=== PATIENT | male | born 2000 | race Caucasian/White ===

== ENCOUNTER 2021-11-11 02:27 | Inpatient (IN) | payer MEDICAID ==
[~2021-11-11] VITALS: Ht 157.5 cm; Wt 39.5 kg
[2021-11-11 04:27] LABS: Basophils # (auto) 0 10 ^3/uL (0-0.2); Eosinophils # (auto) 0 10 ^3/uL (0-0.8); Lymphocytes # (auto) 1.9 10 ^3/uL (0.4-5.4); Monocytes # (auto) 0.3 10 ^3/uL (0-1.3); Neutrophils # (auto) 2.5 10 ^3/uL (1.6-8.6); White Blood Cell 4.7 10^3/uL (4.4-10.8)
[2021-11-11 04:31] LABS: Basophils % (auto) 0.2 % (0.0-2.0); Hematocrit 29.2 % (41.0-53.0); Lymphocytes % (auto) 39.6 % (10.0-50.0); Mean Corpuscular Hemoglobin 42.6 pg (28.0-32.0); Mean Corpuscular Hgb Conc. 34.2 g/dL (32.0-36.0); Mean Corpuscular Volume 124.8 fL (80.0-100.0); Neutrophils % (auto) 53.2 % (37.0-80.0); Nucleated Red Blood Cells % 0.2 %; Red Blood Cells 2.34 10^6/uL (4.5-5.90)
[2021-11-11 04:40] LABS: Albumin 1.2 g/dL (3.4-5.0); Calcium 6.6 mg/dL (8.5-10.1); Magnesium 2.1 mg/dL (1.6-2.6); Potassium 4.1 mmol/L (3.5-5.1)
[2021-11-11 04:44] LABS: Bilirubin, Total 0.3 mg/dL (0.2-1.0); Total Protein 4.1 g/dL (6.4-8.2)
[2021-11-11 05:32] LABS: Urine Bacteria NONE SEEN /hpf (None Seen); Urine Blood Negative /uL (Negative); Urine Specific Gravity 1.008 (1.001-1.035); Urine WBC <1 /hpf (0 - 3)
[2021-11-11 08:23] LABS: Cholesterol 70 mg/dL (< 200)
[2021-11-11 08:26] LABS: HDL Cholesterol 36 mg/dL (40-59); LDL Cholesterol 29 mg/dL (< 100); Triglycerides 94 mg/dL (< 150)
[2021-11-11] MEDS ORDERED: MORPHINE SULFATE INJ 2 MG/ml SYRG IV PRN ×2 (10:30)
[2021-11-11] MEDS ORDERED: ACETAMINOPHEN 325 MG TAB PO PRN (10:30)
[2021-11-11] MEDS ORDERED: HYDROcodone-ACET 5/325MG TAB PO PRN (10:30)
[2021-11-11] MEDS ORDERED: NITROGLYCERIN 0.4 MG SL TAB SL PRN (10:30)
[2021-11-11] MEDS ORDERED: ONDANSETRON HCL 4 MG/2 ML VIAL IV PRN (10:30)
[2021-11-11] MEDS: ENOXAPARIN SOD 60 MG/0.6 ML SYRINGE SC SCH ×2 (13:05→21:55)
[2021-11-11] MEDS: ALBUTEROL SULF 2.5 MG/0.5ML(0.5%) NEB SOLN NEB SCH ×3 (13:06→21:51)
[2021-11-11 13:27] VITALS: BP 96/73
[2021-11-11 14:37] LABS: Protein, Urine 9.1 mg/dL (0.0-11.9)
[2021-11-11 17:03] VITALS: BP 111/77
[2021-11-11] MEDS ORDERED: PRED20TA2 PO (19:06)
[2021-11-11] MEDS ORDERED: ALBU108A5 IN (19:06)
[2021-11-11] MEDS ORDERED: BECL40AE11 IN (19:06)
[2021-11-11] MEDS ORDERED: CLIN-188 PO (19:06)
[2021-11-11 19:59] LABS: BUN/Creatinine Ratio 72.7; Calcium 7.1 mg/dL (8.5-10.1); Potassium 4.3 mmol/L (3.5-5.1)
[2021-11-11 22:00] VITALS: BP 108/89
[2021-11-12 04:52] VITALS: BP 122/93
[2021-11-12 06:04] LABS: Basophils # (auto) 0 10 ^3/uL (0-0.2); Basophils % (auto) 0.3 % (0.0-2.0); Eosinophils # (auto) 0 10 ^3/uL (0-0.8); Eosinophils % (auto) 0.7 % (0.0-7.0); Lymphocytes # (auto) 1.7 10 ^3/uL (0.4-5.4); Monocytes # (auto) 0.2 10 ^3/uL (0-1.3); Neutrophils # (auto) 2.3 10 ^3/uL (1.6-8.6); Red Blood Cells 2.27 10^6/uL (4.5-5.90); White Blood Cell 4.3 10^3/uL (4.4-10.8)
[2021-11-12 06:07] LABS: Hematocrit 28.7 % (41.0-53.0); Hemoglobin 9.7 g/dL (13.5-17.5); Lymphocytes % (auto) 40.3 % (10.0-50.0); Mean Corpuscular Hemoglobin 42.6 pg (28.0-32.0); Mean Corpuscular Hgb Conc. 33.7 g/dL (32.0-36.0); Mean Corpuscular Volume 126.4 fL (80.0-100.0); Monocytes % (auto) 4.4 % (0.0-12.0); Neutrophils % (auto) 54.3 % (37.0-80.0); Nucleated Red Blood Cells % 0.3 %
[2021-11-12] MEDS: ALBUTEROL SULF 2.5 MG/0.5ML(0.5%) NEB SOLN NEB SCH ×5 (06:45→22:35)
[2021-11-12] MEDS ORDERED: MORPHINE SULFATE INJ 2 MG/ml SYRG IV ONE (08:45)
[2021-11-12 09:00] VITALS: BP 101/69
[2021-11-12] MEDS: ENOXAPARIN SOD 60 MG/0.6 ML SYRINGE SC SCH ×2 (09:22→22:19)
[2021-11-12] MEDS ORDERED: ENOXAPARIN SOD 40 MG/0.4 ML SYRINGE SC SCH (10:00)
[2021-11-12] MEDS: FUROSEMIDE 20 MG/2 ML VIAL IV SCH (10:00)
[2021-11-12 10:54] LABS: Urine Bacteria NONE SEEN /hpf (None Seen); Urine Blood Negative /uL (Negative); Urine Specific Gravity 1.007 (1.001-1.035); Urine WBC <1 /hpf (0 - 3)
[2021-11-12 11:13] LABS: Protein, Urine 7.9 mg/dL (0.0-11.9)
[2021-11-12 13:00] VITALS: BP 91/67
[2021-11-12] MEDS: levoFLOXacin 500MG 100 ML IV SCH (14:43)
[2021-11-12 16:50] VITALS: BP 104/58
[2021-11-12 22:00] VITALS: BP 106/59
[2021-11-13 05:00] VITALS: BP 92/44
[2021-11-13] MEDS: ALBUTEROL SULF 2.5 MG/0.5ML(0.5%) NEB SOLN NEB SCH ×5 (07:06→22:52)
[2021-11-13 07:44] LABS: Hemoglobin 7.5 g/dL (13.5-17.5); White Blood Cell 2.9 10^3/uL (4.4-10.8)
[2021-11-13 07:48] LABS: Basophils # (auto) 0 10 ^3/uL (0-0.2); Basophils % (auto) 0.3 % (0.0-2.0); Eosinophils # (auto) 0 10 ^3/uL (0-0.8); Eosinophils % (auto) 0.9 % (0.0-7.0); Lymphocytes # (auto) 1.5 10 ^3/uL (0.4-5.4); Lymphocytes % (auto) 50.5 % (10.0-50.0); Mean Corpuscular Hemoglobin 42.1 pg (28.0-32.0); Mean Corpuscular Hgb Conc. 34.2 g/dL (32.0-36.0); Monocytes # (auto) 0.1 10 ^3/uL (0-1.3); Monocytes % (auto) 4.8 % (0.0-12.0); Neutrophils # (auto) 1.3 10 ^3/uL (1.6-8.6); Neutrophils % (auto) 43.5 % (37.0-80.0); Nucleated Red Blood Cells % 0.1 %; Red Blood Cells 1.78 10^6/uL (4.5-5.90)
[2021-11-13 07:51] LABS: Mean Corpuscular Volume 123.1 fL (80.0-100.0)
[2021-11-13 07:59] LABS: BUN/Creatinine Ratio 76.5; Calcium 6.8 mg/dL (8.5-10.1); Magnesium 1.9 mg/dL (1.6-2.6); Potassium 3.8 mmol/L (3.5-5.1)
[2021-11-13 09:00] VITALS: BP 105/60
[2021-11-13] MEDS: ENOXAPARIN SOD 60 MG/0.6 ML SYRINGE SC SCH ×2 (10:02→21:52)
[2021-11-13] MEDS: FUROSEMIDE 20 MG/2 ML VIAL IV SCH (10:02)
[2021-11-13] MEDS: levoFLOXacin 500MG 100 ML IV SCH (10:03)
[2021-11-13] MEDS: LACTULOSE 20Gm/30ML SOLN PO SCH ×2 (12:13→21:52)
[2021-11-13 12:41] VITALS: BP 96/67
[2021-11-13 16:47] VITALS: BP 106/70
[2021-11-13 20:39] LABS: Basophils # (auto) 0 10 ^3/uL (0-0.2); Eosinophils # (auto) 0 10 ^3/uL (0-0.8); Hemoglobin 8.3 g/dL (13.5-17.5); Monocytes # (auto) 0.1 10 ^3/uL (0-1.3); Neutrophils # (auto) 1.4 10 ^3/uL (1.6-8.6); Red Blood Cells 2.07 10^6/uL (4.5-5.90)
[2021-11-13 20:41] LABS: Basophils % (auto) 0.3 % (0.0-2.0); Eosinophils % (auto) 0.3 % (0.0-7.0); Hematocrit 25.4 % (41.0-53.0); Lymphocytes # (auto) 1.5 10 ^3/uL (0.4-5.4); Lymphocytes % (auto) 48.8 % (10.0-50.0); Mean Corpuscular Hemoglobin 39.9 pg (28.0-32.0); Mean Corpuscular Hgb Conc. 32.6 g/dL (32.0-36.0); Mean Corpuscular Volume 122.4 fL (80.0-100.0); Monocytes % (auto) 4.1 % (0.0-12.0); Neutrophils % (auto) 46.5 % (37.0-80.0); Nucleated Red Blood Cells % 0.3 %; Red Cell Distribution Width 18.8 % (11.8-14.3); White Blood Cell 3.1 10^3/uL (4.4-10.8)
[2021-11-13 22:00] VITALS: BP 95/67
[2021-11-14] VITALS (7 sets, daily range): BP systolic 90–104; BP diastolic 56–77
[2021-11-14] MEDS: ALBUTEROL SULF 2.5 MG/0.5ML(0.5%) NEB SOLN NEB SCH ×5 (05:37→21:40)
[2021-11-14] MEDS: LACTULOSE 20Gm/30ML SOLN PO SCH ×3 (06:00→21:53)
[2021-11-14 09:06] LABS: Hepatitis B Surface Antibody Negative (Negative)
[2021-11-14 09:11] LABS: INR 1.22 (0.9-1.15); Partial Thromboplastin Time 35.6 sec (23.6-33.0)
[2021-11-14] MEDS: ENOXAPARIN SOD 60 MG/0.6 ML SYRINGE SC SCH ×2 (10:00→21:53)
[2021-11-14] MEDS: FUROSEMIDE 20 MG/2 ML VIAL IV SCH (10:02)
[2021-11-14] MEDS: levoFLOXacin 500MG 100 ML IV SCH (10:02)
[2021-11-14] MEDS ORDERED: LIDOCAINE 1% (LOCAL ANESTH.) PF 5ml SDV ONE (12:05)
[2021-11-14] MEDS ORDERED: LIDOCAINE 2%HCL (LOCAL ANESTH.) INJ 10ml MDV ONE (12:07)
[2021-11-14] MEDS ORDERED: LIDOCAINE 2% (LOCAL ANESTH.) PF 5ml SDV IJ ONE (12:15)
[2021-11-14 12:57] LABS: Hepatitis B Core IgM Negative
[2021-11-14 13:02] LABS: Hepatitis C Antibody Reactive (Negative)
[2021-11-15 05:00] VITALS: BP 99/65
[2021-11-15] MEDS: LACTULOSE 20Gm/30ML SOLN PO SCH ×3 (06:03→22:00)
[2021-11-15] MEDS: ALBUTEROL SULF 2.5 MG/0.5ML(0.5%) NEB SOLN NEB SCH ×5 (06:26→21:24)
[2021-11-15 06:48] LABS: White Blood Cell 2.7 10^3/uL (4.4-10.8)
[2021-11-15 06:50] LABS: Hematocrit 22.1 % (41.0-53.0); Hemoglobin 7.2 g/dL (13.5-17.5); Mean Corpuscular Hemoglobin 40.5 pg (28.0-32.0); Mean Corpuscular Hgb Conc. 32.4 g/dL (32.0-36.0); Mean Corpuscular Volume 125.2 fL (80.0-100.0); Red Blood Cells 1.77 10^6/uL (4.5-5.90); Red Cell Distribution Width 18.3 % (11.8-14.3)
[2021-11-15 06:59] LABS: Chloride 110 mmol/L (98-107); Potassium 3.8 mmol/L (3.5-5.1); Sodium 138 mmol/L (136-145)
[2021-11-15 07:00] LABS: Band Neutrophils % (manual) 0; Basophils % (manual) 0 (0.0-2.0); Blast Cells 0; Eosinophils % (manual) 0 (0-7); Metamyelocytes % 0; Myelocytes % 0; Promyelocytes % 0; Reactive Lymphocytes 0
[2021-11-15 07:05] LABS: Anion Gap 4 (5-15); Blood Urea Nitrogen 10 mg/dL (7-18); Calcium 6.6 mg/dL (8.5-10.1); Carbon Dioxide 24 mmol/L (21-32); Glucose 78 mg/dL (74-106); Magnesium 2.2 mg/dL (1.6-2.6); Phosphorus 2.5 mg/dL (2.5-4.90)
[2021-11-15 07:14] LABS: BUN/Creatinine Ratio 66.7; GFR African American 1094 mL/min; GFR Non-African American 904 mL/min
[2021-11-15 07:15] LABS: Albumin 0.8 g/dL (3.4-5.0)
[2021-11-15 08:10] LABS: Lymphocytes % (manual) 56 (10.0-50.0); Monocytes % (manual) 4 (0-12)
[2021-11-15 09:00] VITALS: BP 99/69
[2021-11-15] MEDS: FUROSEMIDE 20 MG/2 ML VIAL IV SCH (09:40)
[2021-11-15] MEDS: ENOXAPARIN SOD 40 MG/0.4 ML SYRINGE SC SCH ×2 (09:41→20:59)
[2021-11-15] MEDS ORDERED: ALBUMIN 25% 100 ML IV SCH ×2 (10:45→19:00)
[2021-11-15] MEDS: levoFLOXacin 500MG 100 ML IV SCH (10:56)
[2021-11-15] MEDS: ALBUMIN 25% 100 ML IV ONE ×2 (10:58→11:46)
[2021-11-15 13:00] VITALS: BP 97/69
[2021-11-15 17:04] VITALS: BP 96/58
[2021-11-15] MEDS: ALBUMIN 25% 100 ML IV SCH (19:40)
[2021-11-15 21:55] VITALS: BP 94/65
[2021-11-16] VITALS (10 sets, daily range): BP systolic 87–119; BP diastolic 57–66
[2021-11-16] MEDS: ALBUMIN 25% 100 ML IV SCH ×2 (04:37→11:31)
[2021-11-16] MEDS: LACTULOSE 20Gm/30ML SOLN PO SCH ×2 (06:00→14:00)
[2021-11-16] MEDS: ALBUTEROL SULF 2.5 MG/0.5ML(0.5%) NEB SOLN NEB SCH ×3 (09:51→18:39)
[2021-11-16 10:41] LABS: Mean Corpuscular Hgb Conc. 33.6 g/dL (32.0-36.0)
[2021-11-16 10:43] LABS: Hematocrit 18.8 % (41.0-53.0); Mean Corpuscular Hemoglobin 41.3 pg (28.0-32.0); Mean Corpuscular Volume 123.1 fL (80.0-100.0); Red Blood Cells 1.53 10^6/uL (4.5-5.90); Red Cell Distribution Width 18.6 % (11.8-14.3)
[2021-11-16] MEDS: FUROSEMIDE 20 MG/2 ML VIAL IV SCH (10:51)
[2021-11-16] MEDS: levoFLOXacin 500MG 100 ML IV SCH (10:52)
[2021-11-16] MEDS: ENOXAPARIN SOD 40 MG/0.4 ML SYRINGE SC SCH (10:55)
[2021-11-16 10:57] LABS: Hemoglobin 6.3 g/dL (13.5-17.5); White Blood Cell 1.9 10^3/uL (4.4-10.8)
[2021-11-16 10:59] LABS: Anion Gap 5 (5-15); BUN/Creatinine Ratio 53.3; Basophils % (manual) 0 (0.0-2.0); Blast Cells 0; Blood Urea Nitrogen 8 mg/dL (7-18); Calcium 7.5 mg/dL (8.5-10.1); Carbon Dioxide 25 mmol/L (21-32); Chloride 112 mmol/L (98-107); GFR African American 1094 mL/min; GFR Non-African American 904 mL/min; Glucose 87 mg/dL (74-106); Metamyelocytes % 0; Myelocytes % 0; Potassium 3.1 mmol/L (3.5-5.1); Promyelocytes % 0; Reactive Lymphocytes 0; Sodium 142 mmol/L (136-145)
[2021-11-16] MEDS ORDERED: APIX5TAB PO (11:40)
[2021-11-16] MEDS ORDERED: CEPH-509 PO (11:40)
[2021-11-16] MEDS ORDERED: POTASSIUM EFFERVESENT TAB 25 MEQ GT ONE (12:45)
[2021-11-16 14:12] LABS: Band Neutrophils % (manual) 1; Eosinophils % (manual) 2 (0-7); Lymphocytes % (manual) 63 (10.0-50.0); Monocytes % (manual) 4 (0-12)
== END 2021-11-16 21:35 | disposition home or self-care (01) | DRG 197 ==
LOC: ER 02:27 → TELE 10:33 → TELE-CENTR 16:38
PROVIDERS: ADMIT Internal Medicine; ATTEND Internal Medicine
PROC: 0W9B3ZZ Drainage of Left Pleural Cavity, Percutaneous Approach (ICD-10-PCS; principal; 2021-11-14)
PROC: 0W9G3ZZ Drainage of Peritoneal Cavity, Percutaneous Approach (ICD-10-PCS; 2021-11-15)
PROC: 30233N1 Transfusion of Nonautologous Red Blood Cells into Peripheral Vein, Percutaneous Approach (ICD-10-PCS; 2021-11-16)
DX: I82.432 Acute embolism and thrombosis of left popliteal vein (principal); J96.01 Acute respiratory failure with hypoxia; E43 Unspecified severe protein-calorie malnutrition; J91.8 Pleural effusion in other conditions classified elsewhere; R18.8 Other ascites; I42.9 Cardiomyopathy, unspecified; E88.09 Other disorders of plasma-protein metabolism, not elsewhere classified; E87.1 Hypo-osmolality and hyponatremia; I50.9 Heart failure, unspecified; B96.89 Other specified bacterial agents as the cause of diseases classified elsewhere; D64.9 Anemia, unspecified; Z20.822 Contact with and (suspected) exposure to COVID-19; F84.0 Autistic disorder; J45.909 Unspecified asthma, uncomplicated; J98.11 Atelectasis; Z79.01 Long term (current) use of anticoagulants; Z68.1 Body mass index [BMI] 19.9 or less, adult
CPT/HCPCS: 36415; 71045; 71250; 76705; 76775; 76942; 80048; 80053; 80061; 80069; 81001; 82570; 83605; 83735; 83880; 83935; 83986; 84133; 84156; 84300; 85007; 85025; 85027; 85379; 85610; 85652; 85730; 86038; 86160; 86704; 86705; 86706; 86803; 86850; 86900; 86901; 86920; 87040; 87077; 87186; 87205; 87340; 89051; 93306; 93970; 94640; G0378; J1956; J2001; P9047

== ENCOUNTER 2022-11-03 06:00 | Inpatient (IN) | payer MEDICAID, OTHER ==
[~2022-11-03] VITALS: Ht 152.4 cm; Wt 28.7 kg
[~2022-11-03 06:00] MED LIST: ALBU108A5 IN; APIX5TAB PO; BECL40AE11 IN; CEPH-509 PO
[2022-11-03 07:32] LABS: Basophils # (auto) 0.1 10 ^3/uL (0-0.2); Basophils % (auto) 1.2 % (0.0-2.0); Eosinophils # (auto) 0.3 10 ^3/uL (0-0.8); Eosinophils % (auto) 5.7 % (0.0-7.0); Hematocrit 37.7 % (41.0-53.0); Hemoglobin 12.3 g/dL (13.5-17.5); Lymphocytes # (auto) 2.2 10 ^3/uL (0.4-5.4); Mean Corpuscular Hemoglobin 29.1 pg (28.0-32.0); Mean Corpuscular Hgb Conc. 32.8 g/dL (32.0-36.0); Mean Corpuscular Volume 88.8 fL (80.0-100.0); Monocytes # (auto) 0.3 10 ^3/uL (0-1.3); Neutrophils # (auto) 2.9 10 ^3/uL (1.6-8.6); Neutrophils % (auto) 50.1 % (37.0-80.0); Red Blood Cells 4.24 10^6/uL (4.5-5.90); Red Cell Distribution Width 15.7 % (11.8-14.3); White Blood Cell 5.9 10^3/uL (4.4-10.8)
[2022-11-03 07:36] LABS: Albumin 2.4 g/dL (3.4-5.0); Calcium 8.1 mg/dL (8.5-10.1); Potassium 4.3 mmol/L (3.5-5.1)
[2022-11-03 07:40] LABS: INR 1.02 (0.9-1.15); Partial Thromboplastin Time 28.7 sec (24.6-33.4)
[2022-11-03 07:41] LABS: BUN/Creatinine Ratio 16.3 (10.0-20.0); Bilirubin, Total 0.2 mg/dL (0.2-1.0); Total Protein 5.6 g/dL (6.4-8.2)
[2022-11-03 09:21] LABS: Urine WBC None Seen /hpf (0 - 3)
[2022-11-03 09:49] LABS: Urine Bacteria NONE SEEN /hpf (None Seen); Urine Blood Negative /uL (Negative); Urine Specific Gravity 1.009 (1.001-1.035)
[2022-11-03] MEDS ORDERED: SODIUM CHLORIDE 0.9% 500 ML IV ONE ×2 (20:30→21:45)
[2022-11-03] MEDS ORDERED: MORPHINE SULFATE INJ 2 MG/ml SYRG IV PRN (20:45)
[2022-11-03] MEDS ORDERED: ONDANSETRON HCL 4 MG/2 ML VIAL IV PRN (20:45)
[2022-11-03] MEDS ORDERED: NITROGLYCERIN 0.4 MG SL TAB SL PRN (20:45)
[2022-11-03 21:00] VITALS: BP 71/45
[2022-11-03] MEDS ORDERED: ALBUTEROL SULF 2.5 MG/0.5ML(0.5%) NEB SOLN NEB PRN (21:00)
[2022-11-03] MEDS: SODIUM CHLORIDE 0.9% 1,000 ML IV SCH (21:17)
[2022-11-03] MEDS ORDERED: PANTOPRAZOLE 40 MG/10 ML VIAL INJ IV ONE (21:30)
[2022-11-03] MEDS: APIXABAN 5 MG TAB PO SCH (21:47)
[2022-11-03 22:27] LABS: INR 1.05 (0.9-1.15)
[2022-11-04] VITALS (20 sets, daily range): BP systolic 75–130; BP diastolic 37–92
[2022-11-04] MEDS ORDERED: SODIUM CHLORIDE 0.9% 500 ML IV ONE (03:30)
[2022-11-04] MEDS ORDERED: NOREPINEPHRINE 8 MG/250ML KIT 250 ML IV ONE (04:26)
[2022-11-04] MEDS: NOREPINEPHRINE 8 MG/250ML KIT 250 ML IV SCH ×2 (04:34→22:47)
[2022-11-04] MEDS: SODIUM CHLORIDE 0.9% 1,000 ML IV SCH ×2 (06:45→16:53)
[2022-11-04] MEDS ORDERED: KETOROLAC TROMETH 30 MG/ML 1ML VIAL IV ONE (07:00)
[2022-11-04 07:51] LABS: Potassium 4.2 mmol/L (3.5-5.1)
[2022-11-04 07:56] LABS: Albumin 2.5 g/dL (3.4-5.0); BUN/Creatinine Ratio 31.7 (10.0-20.0)
[2022-11-04 07:58] LABS: Bilirubin, Total 0.4 mg/dL (0.2-1.0); Total Protein 5.9 g/dL (6.4-8.2)
[2022-11-04 08:48] LABS: Basophils # (auto) 0.2 10 ^3/uL (0-0.2); Eosinophils # (auto) 0.7 10 ^3/uL (0-0.8); Eosinophils % (auto) 3.6 % (0.0-7.0); Lymphocytes # (auto) 7.4 10 ^3/uL (0.4-5.4); Mean Corpuscular Volume 87.9 fL (80.0-100.0); Red Blood Cells 4.85 10^6/uL (4.5-5.90); White Blood Cell 19.8 10^3/uL (4.4-10.8)
[2022-11-04 08:50] LABS: Basophils % (auto) 0.8 % (0.0-2.0); Hematocrit 42.7 % (41.0-53.0); Hemoglobin 14.4 g/dL (13.5-17.5); Lymphocytes % (auto) 37.2 % (10.0-50.0); Mean Corpuscular Hemoglobin 29.7 pg (28.0-32.0); Mean Corpuscular Hgb Conc. 33.8 g/dL (32.0-36.0); Monocytes # (auto) 0.6 10 ^3/uL (0-1.3); Monocytes % (auto) 2.8 % (0.0-12.0); Neutrophils % (auto) 55.6 % (37.0-80.0); Nucleated Red Blood Cells % 0.5 %; Red Cell Distribution Width 15.9 % (11.8-14.3)
[2022-11-04] MEDS: APIXABAN 5 MG TAB PO SCH ×2 (10:00→22:00)
[2022-11-04] MEDS: PANTOPRAZOLE 40 MG/10 ML VIAL INJ IV SCH (10:10)
[2022-11-04] MEDS ORDERED: DEXTROSE (50%) 50ML SYRG IV PRN (18:30)
[2022-11-04] MEDS: PIPERACILLIN-TAZOB 3.375GM 100 ML IV SCH (22:47)
[2022-11-05] VITALS (87 sets, daily range): BP systolic 79–131; BP diastolic 38–80
[2022-11-05 05:25] LABS: Potassium 4.2 mmol/L (3.5-5.1)
[2022-11-05 05:33] LABS: Albumin 2.5 g/dL (3.4-5.0); BUN/Creatinine Ratio 22.9 (10.0-20.0); Bilirubin, Total 0.3 mg/dL (0.2-1.0); Calcium 7.9 mg/dL (8.5-10.1); Total Protein 5.5 g/dL (6.4-8.2)
[2022-11-05 05:38] LABS: Basophils # (auto) 0.2 10 ^3/uL (0-0.2); Eosinophils # (auto) 0.4 10 ^3/uL (0-0.8); Eosinophils % (auto) 2.3 % (0.0-7.0); Hematocrit 40.8 % (41.0-53.0); Hemoglobin 14.2 g/dL (13.5-17.5); Lymphocytes # (auto) 6.1 10 ^3/uL (0.4-5.4); Mean Corpuscular Hgb Conc. 34.9 g/dL (32.0-36.0); Mean Corpuscular Volume 86.1 fL (80.0-100.0); Monocytes # (auto) 1.1 10 ^3/uL (0-1.3); Monocytes % (auto) 6.6 % (0.0-12.0); Neutrophils # (auto) 8.4 10 ^3/uL (1.6-8.6); Neutrophils % (auto) 52.1 % (37.0-80.0); Nucleated Red Blood Cells % 0.2 %; Red Blood Cells 4.74 10^6/uL (4.5-5.90); Red Cell Distribution Width 15.3 % (11.8-14.3)
[2022-11-05] MEDS: ACCU-CHEK COMFORT CURVE STRIP VI SCH ×4 (06:00→18:00)
[2022-11-05] MEDS: PIPERACILLIN-TAZOB 3.375GM 100 ML IV SCH ×3 (07:04→22:42)
[2022-11-05] MEDS: D5W/SOD CHLO 0.9% 1,000 ML IV SCH ×2 (07:09→14:30)
[2022-11-05] MEDS: NOREPINEPHRINE 8 MG/250ML KIT 250 ML IV SCH (09:20)
[2022-11-05] MEDS: PANTOPRAZOLE 40 MG/10 ML VIAL INJ IV SCH (09:23)
[2022-11-05] MEDS: APIXABAN 5 MG TAB PO SCH ×2 (10:00→22:00)
[2022-11-05] MEDS: Pro-Stat SF 30ml Vanilla PO SCH (18:00)
[2022-11-05] MEDS ORDERED: Ensure HIGH Protein Chocolate 8oz Bottle PO SCH (18:00)
[2022-11-05 19:49] LABS: Lactic Acid w/Reflex 3.1 mmol/L (0.4-2.0)
[2022-11-06] VITALS (94 sets, daily range): BP systolic 78–140; BP diastolic 28–74
[2022-11-06] MEDS: D5W/SOD CHLO 0.9% 1,000 ML IV SCH (05:00)
[2022-11-06] MEDS: NOREPINEPHRINE 8 MG/250ML KIT 250 ML IV SCH (05:01)
[2022-11-06] MEDS: ACCU-CHEK COMFORT CURVE STRIP VI SCH ×5 (06:00→23:48)
[2022-11-06] MEDS: MIDODRINE HCL 10 MG TAB PO SCH ×3 (07:58→18:51)
[2022-11-06] MEDS: PIPERACILLIN-TAZOB 3.375GM 100 ML IV SCH ×3 (07:59→22:05)
[2022-11-06] MEDS: Pro-Stat SF 30ml Vanilla PO SCH ×3 (08:15→18:00)
[2022-11-06] MEDS: APIXABAN 5 MG TAB PO SCH ×2 (10:00→22:00)
[2022-11-06] MEDS: PANTOPRAZOLE 40 MG/10 ML VIAL INJ IV SCH (10:37)
[2022-11-07] VITALS (91 sets, daily range): BP systolic 71–130; BP diastolic 27–78
[2022-11-07] MEDS: PIPERACILLIN-TAZOB 3.375GM 100 ML IV SCH ×3 (05:36→22:02)
[2022-11-07] MEDS: MIDODRINE HCL 10 MG TAB PO SCH ×3 (05:36→18:15)
[2022-11-07] MEDS: ACCU-CHEK COMFORT CURVE STRIP VI SCH ×3 (05:37→18:15)
[2022-11-07 06:59] LABS: Basophils # (auto) 0.1 10 ^3/uL (0-0.2); Basophils % (auto) 0.9 % (0.0-2.0); Eosinophils # (auto) 0.3 10 ^3/uL (0-0.8); Eosinophils % (auto) 3.1 % (0.0-7.0); Hematocrit 34.6 % (41.0-53.0); Hemoglobin 11.9 g/dL (13.5-17.5); Lymphocytes # (auto) 3.2 10 ^3/uL (0.4-5.4); Lymphocytes % (auto) 34.3 % (10.0-50.0); Mean Corpuscular Hemoglobin 29.7 pg (28.0-32.0); Mean Corpuscular Hgb Conc. 34.2 g/dL (32.0-36.0); Mean Corpuscular Volume 86.7 fL (80.0-100.0); Monocytes # (auto) 0.6 10 ^3/uL (0-1.3); Monocytes % (auto) 6.1 % (0.0-12.0); Neutrophils # (auto) 5.2 10 ^3/uL (1.6-8.6); Neutrophils % (auto) 55.6 % (37.0-80.0); Nucleated Red Blood Cells % 0.1 %; Red Cell Distribution Width 15.7 % (11.8-14.3); White Blood Cell 9.3 10^3/uL (4.4-10.8)
[2022-11-07] MEDS: Pro-Stat SF 30ml Vanilla PO SCH ×3 (08:00→20:00)
[2022-11-07] MEDS: APIXABAN 5 MG TAB PO SCH ×2 (10:00→21:19)
[2022-11-07] MEDS ORDERED: SODIUM CHLORIDE 0.9% 1,000 ML IV ONE (11:30)
[2022-11-07] MEDS ORDERED: MID10T PO (12:10)
[2022-11-07] MEDS ORDERED: INFA1LIQ PO (12:10)
[2022-11-07] MEDS ORDERED: HYDROCORTISONE SOD SUCC 100 MG/2ML INJ VIAL IV ONE (13:45)
[2022-11-08] VITALS (64 sets, daily range): BP systolic 83–114; BP diastolic 27–60
[2022-11-08] MEDS: ACCU-CHEK COMFORT CURVE STRIP VI SCH ×3 (00:31→11:33)
[2022-11-08] MEDS: NOREPINEPHRINE 8 MG/250ML KIT 250 ML IV SCH ×2 (04:30→07:57)
[2022-11-08] MEDS: PIPERACILLIN-TAZOB 3.375GM 100 ML IV SCH ×2 (06:31→13:13)
[2022-11-08] MEDS: MIDODRINE HCL 10 MG TAB PO SCH ×2 (07:06→12:28)
[2022-11-08] MEDS: Pro-Stat SF 30ml Vanilla PO SCH ×2 (08:51→12:29)
[2022-11-08] MEDS: APIXABAN 5 MG TAB PO SCH (08:51)
[2022-11-08] MEDS ORDERED: DOXY-448 PO (15:08)
[2022-11-08] MEDS ORDERED: ALBUMIN 25% 100 ML IV SCH (18:30)
[2023-11-08] MEDS ORDERED: ALBUMIN 25% 100 ML IV SCH (20:00)
== END 2022-11-08 16:15 | disposition home or self-care (01) | DRG 204 ==
LOC: ER 06:00 → TELE 20:45 → ICU CENTRL 11-04 17:55
PROVIDERS: ADMIT Nurse Practitioner Family; ATTEND Hospitalist
DX: I95.1 Orthostatic hypotension (principal); E43 Unspecified severe protein-calorie malnutrition; L89.151 Pressure ulcer of sacral region, stage 1; E88.09 Other disorders of plasma-protein metabolism, not elsewhere classified; Z43.1 Encounter for attention to gastrostomy; I10 Essential (primary) hypertension; G80.9 Cerebral palsy, unspecified; J45.909 Unspecified asthma, uncomplicated; F84.0 Autistic disorder; Y83.8 Other surgical procedures as the cause of abnormal reaction of the patient, or of later complication, without mention of misadventure at the time of the procedure; D72.829 Elevated white blood cell count, unspecified; Z86.718 Personal history of other venous thrombosis and embolism; Z68.1 Body mass index [BMI] 19.9 or less, adult; Y92.89 Other specified places as the place of occurrence of the external cause
CPT/HCPCS: 36415; 71045; 80053; 81001; 82270; 82962; 83605; 85025; 85610; 85730; 87040; 87081; 93970; 96361; 96374; C9113; G0378; J1885; J2405; J2543; J7042